=== PATIENT | male | born 1980 | race Caucasian/White ===

== ENCOUNTER 2019-11-09 13:40 | Outpatient (CLI) | payer OTHER, SELFPAY ==
--- NOTE | 2019-11-09 14:15 | US_ITS ---
WS: [id number] ABDOMINAL ULTRASOUND REASON FOR EXAM: nausea and vomiting TECHNIQUE: Grayscale and Doppler ultrasound examination of the abdomen. FINDINGS: Pancreas: Not well seen. Abdominal aorta and IVC: Within normal limits. Liver: Liver measures 20.4 cm in length. Fatty infiltration. Hepatopedal circulation normal. Gallbladder: Gallbladder wall thickness measures 2.4 mm. Calcified density is seen in the wall of the gallbladder most likely a calcified polyp. There is fluid accumulation adjacent to the gallbladder m easures 3.57 x 1.96 cm. Most likely a hepatic cyst. Left kidney: Left kidney measures 11.6 cm x 5.2 cm x 5.3 cm. No hydronephrosis or stones. Right kidney: Right kidney measures 11.3 cm x cm no hydronephrosis or stones. Spleen: Spleen measures 10.5 cm x 4.4 cm x 3.9 cm. US/US abdomen complete* [id number] IMPRESSION: Calcified density in the wall of the gallbladder most likely a calcified polyp. A cyst is noted in the liver hepatomegaly. The gallbladder. Fatty infiltration of the liver. Hepatomegaly.
== END 2019-11-09 13:41 | disposition home or self-care (01) ==
LOC: RAD 13:44
PROVIDERS: PCP Nurse Practitioner Family; Visit Provider Nurse Practitioner Family
DX: R11.2 Nausea with vomiting, unspecified (principal); K76.89 Other specified diseases of liver; K76.0 Fatty (change of) liver, not elsewhere classified; R16.0 Hepatomegaly, not elsewhere classified
CPT/HCPCS: 76700

== ENCOUNTER → 2019-11-10 19:23 | Outpatient (BNVA) | payer OTHER, SELFPAY | PROVIDERS: Visit Provider Nurse Practitioner Family | DX: E11.9 Type 2 diabetes mellitus without complications (principal); K21.9 Gastro-esophageal reflux disease without esophagitis; R10.9 Unspecified abdominal pain; K92.0 Hematemesis | CPT/HCPCS: 36416; 82962 ==

== ENCOUNTER → 2019-11-13 11:56 | Outpatient (BNVA) | payer OTHER, SELFPAY | PROVIDERS: PCP Nurse Practitioner Family; Visit Provider Nurse Practitioner Family | DX: R10.9 Unspecified abdominal pain (principal) | CPT/HCPCS: 82150; 83690 ==

== ENCOUNTER → 2020-01-07 14:45 | Outpatient (BNVA) | payer OTHER, SELFPAY | PROVIDERS: PCP Nurse Practitioner Family; Visit Provider Nurse Practitioner Family | DX: E11.9 Type 2 diabetes mellitus without complications (principal); E78.2 Mixed hyperlipidemia; E55.9 Vitamin D deficiency, unspecified; K76.0 Fatty (change of) liver, not elsewhere classified; R53.83 Other fatigue | CPT/HCPCS: 80053; 80061; 81001; 82306; 83036; 84443; 85025 ==

== ENCOUNTER → 2020-03-28 16:49 | Outpatient (BNVA) | payer OTHER, SELFPAY | PROVIDERS: PCP Nurse Practitioner Family; Visit Provider Nurse Practitioner Family | DX: Z11.59 Encounter for screening for other viral diseases (principal); R05 Cough | CPT/HCPCS: 87635 ==

== ENCOUNTER → 2020-10-03 08:36 | Outpatient (BNVA) | payer OTHER, SELFPAY | PROVIDERS: PCP Nurse Practitioner Family; Visit Provider Nurse Practitioner Family | DX: E55.9 Vitamin D deficiency, unspecified (principal); E11.9 Type 2 diabetes mellitus without complications; R53.83 Other fatigue; E78.2 Mixed hyperlipidemia; R10.11 Right upper quadrant pain; K21.9 Gastro-esophageal reflux disease without esophagitis | CPT/HCPCS: 80053; 80061; 81003; 82150; 82306; 83036; 83690; 84439; 84443; 84481; 85025 ==

== ENCOUNTER → 2021-02-07 11:14 | Outpatient (BNVA) | payer OTHER, SELFPAY | PROVIDERS: PCP Nurse Practitioner Family; Visit Provider Nurse Practitioner Family | DX: E11.9 Type 2 diabetes mellitus without complications (principal); E78.2 Mixed hyperlipidemia | CPT/HCPCS: 80053; 80061; 83036; 85025 ==

== ENCOUNTER → 2021-07-07 11:25 | Outpatient (BNVA) | payer OTHER, SELFPAY | PROVIDERS: PCP Nurse Practitioner Family; Visit Provider Nurse Practitioner Family | DX: E11.9 Type 2 diabetes mellitus without complications (principal) | CPT/HCPCS: 36415; 80053; 83036; 85025 ==

== ENCOUNTER 2022-04-18 16:20 | Emergency (ER) | payer OTHER, SELFPAY ==
--- NOTE | 2022-04-18 16:22 | ECG_ITS ---
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 Measurements Intervals [place] Rate: 105 P: 45 FL: 131 QRS: 11 QRSD: 95 T: 62 QT: 334 QTc: 442 Interpretive Statements SINUS TACHYCARDIA WITH FREQUENT SUPRAVENTRICULAR PREMATURE COMPLEXES POSSIBLE LEFT ATRIAL ENLARGEMENT [-0.1mV P-WAVE IN V1/V2] NONSPECIFIC T-WAVE ABNORMALITY ABNORMAL RHYTHM ECG No previous ECG available for comparison Electronically Signed On 04-18-2022 16:32:08 CDT by Bin Hayes M.D. [id number]
--- NOTE | 2022-04-18 16:31 | XRR_ITS ---
PROCEDURE INFORMATION: Exam: XR Chest Exam date and time: 04/18/2022 4:42 PM Age: 42 years old Clinical indication: Pain; Angina pectoris; Additional info: Chest pain TECHNIQUE: Imaging protocol: Radiologic exam of the chest. Views: 1 view. COMPARISON: No relevant prior studies available. FINDINGS: Lungs: 1.1 cm nodular density in the upper left lung. The lungs are otherwise clear. Pleural spaces: Unremarkable. No pleural effusion. No pneumothorax. Heart/Mediastinum: Unremarkable. No cardiomegaly. Bones/joints: Unremarkable. XR/XR chest 1V portable [id number] IMPRESSION: 1.1 cm left pulmonary nodule. Follow-up with CT imaging recommended.
[2022-04-18 16:34] VITALS: BP 134/77; PULSE 103; RESP 18; TEMP 36.6; O2SAT 99; BMI 38.3
--- NOTE | 2022-04-18 16:35 | W.ED.CHESTPA ---
Documented by User: Macario Jimenez DO 04/24/22 08:02 HPI - Chest Pain General: Chief Complaint: Chest Pain Stated Complaint: CHEST PAIN Time Seen by Provider: 04/18/22 16:24 Source: patient Mode of arrival: EMS Limitations: no limitations History of Present Illness: 42-year-old male presents emergency room via EMS he was at work began getting lightheaded and dizzy had some chest pain rating to his left arm he went back into a break area out of the heat and his symptoms have been persisting he began to ease up COVID EMS for called he was given nitro and aspirin on arrival here he is essentially symptom-free. He states he has had episodes like this before after which she had a cardiac work-up which was negative. He has not had any angiography. MD complaint: chest pain Onset (ago): minute(s) Timing of current episode: episodic Prior episodes: Yes Onset: during exertion Pain location: left chest Pain radiation: left arm Severity: moderate Quality: tightness, aching and heaviness Relieving factors: nitroglycerin and rest Exacerbating factors: nothing Context: other (Excessive heat exposure) Associated symptoms: Reports diaphoresis, dyspnea and nausea; Deny abdominal pain, fever(s), leg edema, palpitations, sense of impending doom, syncope or vomiting Treatment prior to arrival: aspirin, nitroglycerin and other (IV fentanyl) Review of Systems Const: Reports: diaphoresis; Denies: fever(s), chills, fatigue or malaise ENMT: Denies: throat pain, ear or mastoid pain, nasal discharge or nasal congestion Card: Denies: chest pain, palpitations or syncope Resp: Reports: dyspnea; Denies: productive cough, non-productive cough or wheezing GI: Reports: nausea; Denies: abdominal pain, vomiting or diarrhea : Denies: flank pain, difficulty urinating, dysuria, urinary frequency or urinary urgency Skin/Breast: Denies: rash or pruritus PFSH ED PFSH: Medical History Anxiety and depression Bilateral impacted cerumen Bilateral impacted cerumen DM type 2 (diabetes mellitus, type 2) Essential hypertension Fatigue Fatty liver GERD (gastroesophageal reflux disease) Mixed hyperlipidemia RUQ abdominal pain Vitamin D deficiency Surgical History History of appendectomy Family History Mother Anesthesia complication Bleeding disorder Clotting disorder CAD (coronary artery disease) Cancer Chronic kidney disease (CKD) Dementia Diabetes Lung disease Stroke Family/Other Bleeding disorder Clotting disorder CAD (coronary artery disease) Cancer Grandmother Cancer Grandfather Cancer Grandmother Cancer Grandfather Cancer Father Diabetes Stroke Denies family history of Suicide Social History Smoking and tobacco status: never smoked Second hand smoke exposure: No Smoking risk assessment/counseling performed?: No Alcohol intake: never Desire information about alcohol rehabilitation?: No Counseling given: No Desire information about substance/drug rehabilitation?: No Counseling given: No Physical Exam Const: COMMON NORMALS: no acute distress GENERAL APPEARANCE: cooperative and comfortable ORIENTATION/CONSCIOUSNESS: Yes awake, Yes oriented to person, Yes oriented to place and Yes oriented to time HENMT: COMMON NORMALS: normocephalic, atraumatic and hearing grossly normal bilaterally HEAD & SCALP: normocephalic and atraumatic Resp: COMMON NORMALS: normal respiratory effort, No retractions, No use of accessory muscles and clear to auscultation bilaterally AUSCULTATION: clear to auscultation bilaterally Cardio: COMMON NORMALS: regular rate, regular rhythm and No murmurs present (Cardio) RATE: regular rate RHYTHM: regular rhythm GI: COMMON NORMALS: Soft to palpation and No hepatosplenomegaly present AUSCULTATION: Yes normoactive bowel sounds PALPATION: Yes Soft to palpation, No Tenderness to palpation present (GI), No Guarding due to palpation present (GI) and Yes No hepatosplenomegaly present Extremity: COMMON NORMALS: normal to inspection, capillary refill normal, no clubbing, cyanosis or edema, no calf tenderness and no pedal edema Neuro: SENSORIUM/ORIENTATION: Yes oriented to person, Yes oriented to place and Yes oriented to time Skin: COMMON NORMALS: no rashes or lesions noted GENERAL SKIN EXAM: no rashes or lesions noted Course Vital Signs: Vital signs: Vital Signs Temperature 98 F 04/18/22 16:34 Pulse Rate 94 04/18/22 20:14 Respiratory Rate 19 H 04/18/22 20:14 Blood Pressure 124/94 04/18/22 20:14 Pulse Oximetry 100 04/18/22 20:14 Oxygen Delivery Me thod 04/18/22 18:43 MDM - Chest Pain Medical Decision Making Care signed out to Dr. Valencia at change of shift. See final notes for diagnosis and disposition. Patient presents here with chest pain is atypical in nature likely due to heat exposure he is well-appearing here he has no signs acute coronary syndrome 2-hour troponin here is negative did have a pulmonary nodule noted on x-ray informed him of this and we will get him follow-up with pulmonology he is return if worsening he understands agrees to plan. Medical Records I reviewed the patient's medical records. Lab Data I reviewed the patient's lab results. : 04/18/22 16:47 04/18/22 16:47 Radiology Impressions Chest X-Ray 04/18/22 16:31 IMPRESSION: 1.1 cm left pulmonary nodule. Follow-up with CT imaging recommended. Laboratory Results WBC 10.8 10^3/uL (4.0-10.0) H 04/18/22 16:47 RBC 4.60 10^6/uL (4.1-5.3) 04/18/22 16:47 Hgb 13.9 g/dL (11.7-16.6) 04/18/22 16:47 Hct 40.2 % (42.0-52.0) L 04/18/22 16:47 MCV 87.4 fl (80-94) 04/18/22 16:47 MCH 30.2 pg (28.0-34.0) 04/18/22 16:47 MCHC 34.6 g/dL (30.0-36.0) 04/18/22 16:47 RDW 12.6 % (12.1-15.1) 04/18/22 16:47 Plt Count 306 10^3/cmm (130-400) 04/18/22 16:47 MPV 11.6 fL (7.4-10.4) H 04/18/22 16:47 Neut % (Auto) 69.8 % 04/18/22 16:47 Lymph % (Auto) 20.2 % 04/18/22 16:47 Castro % (Auto) 7.7 % 04/18/22 16:47 Eos % (Auto) 1.1 % 04/18/22 16:47 Baso % (Auto) 0.6 % 04/18/22 16:47 Neut # (Auto) 7.51 10^3/uL (1.8-7.7) 04/18/22 16:47 Lymph # (Auto) 2.2 10^3/uL (0.8-4.8) 04/18/22 16:47 Castro # (Auto) 0.8 10^3/uL (0.2-0.9) 04/18/22 16:47 Eos # (Auto) 0.1 10^3/uL (0.0-0.8) 04/18/22 16:47 Baso # (Auto) 0.1 10^3/uL (0.0-0.1) 04/18/22 16:47 Nucleated RBC % (auto) 0 % 04/18/22 16:47 Nucleated RBCs # 0.0 /100WBC 04/18/22 16:47 Sodium 133 mmol/L (136-145) L 04/18/22 16:47 Potassium 3.6 mmol/L (3.5-5.1) 04/18/22 16:47 Chloride 98 mmol/L (98-107) 04/18/22 16:47 Carbon Dioxide 20 mmol/L (22-29) L 04/18/22 16:47 Anion Gap 18.6 (5-19) 04/18/22 16:47 BUN 14 mg/dL (6-20) 04/18/22 16:47 Creatinine 0.8 mg/dL (0.7-1.2) 04/18/22 16:47 GFR Calculation 106.0 mL/min (90-130) 04/18/22 16:47 Glucose 210 mg/dL (65-115) H 04/18/22 16:47 Calculated Osmolality 283 mOsm/kg (285-295) L 04/18/22 16:47 Calcium 9.1 mg/dL (8.5-10.5) 04/18/22 16:47 Total Bilirubin 0.5 mg/dL (0.15-1.2) 04/18/22 16:47 AST 12 U/L (0-40) 04/18/22 16:47 ALT 16 U/L (0-41) 04/18/22 16:47 Alkaline Phosphatase 78 IU/L (40-130) 04/18/22 16:47 Troponin T Baseline 7 ng/L (0-15) 04/18/22 16:47 Troponin T 120 Minute 9.55 ng/L (0-15) 04/18/22 18:57 Delta Troponin T 2.55 ABS# (0-10) 04/18/22 18:57 Total Protein 7.5 g/dL (6.6-8.7) 04/18/22 16:47 Albumin 4.3 g/dL (3.5-5.2) 04/18/22 16:47 Globulin 3.2 g/dL (1.3-4.6) 04/18/22 16:47 Discharge Plan Discharge Patient Disposition: Home Clinical Impression: Chest pain, Pulmonary nodule Condition: Stable Prescriptions: No Action ibuprofen 200 mg capsule 200 mg PO Q6H PRN (Reason: Pain) lisinopril 20 mg tablet 20 mg PO DAILY 90 Days Qty: 90 3RF azithromycin 250 mg tablet See Rx Instructions PO .COMPLEX 5 Days Qty: 6 0RF Rx Instructions: For 250 mg dose pack: take 500 mg today (day 1), then 250 mg for 4 days (days 2-5) PO Januvia 100 mg tablet 100 mg PO DAILY 90 Days Qty: 90 2RF Nexium 20 mg Capsule,Delayed Release(Dr/Ec) 20 mg PO DAILY Discharge Orders: Discharge ED (Routine); Ordered 04/18/22 Ordered By: Leonor Valencia Referrals: FILIBERTO Howe, CLINICAL REVIEW NURSE [Primary Care Provider] - Discharge Diet: Advance as tolerated Discharge Activity: Resume usual activity Patient Instructions: Chest Pain (ED) Coding Level of Care Code ED Development Representative for Chg Fwd Exam Detailed Documented by User: Leonor Valencia MD 04/18/22 20:00 HPI - Chest Pain General: Chief Complaint: Chest Pain Stated Complaint: CHEST PAIN Time Seen by Provider: 04/18/22 16:24 PFSH ED PFSH: Medical History Anxiety and depression Bilateral impacted cerumen Bilateral impacted cerumen DM type 2 (diabetes mellitus, type 2) Essential hypertension Fatigue Fatty liver GERD (gastroesophageal reflux disease) Mixed hyperlipidemia RUQ abdominal pain Vitamin D deficiency Surgical History History of appendectomy Family History Mother Anesthesia complication Bleeding disorder Clotting disorder CAD (coronary artery disease) Cancer Chronic kidney disease (CKD) Dementia Diabetes Lung disease Stroke Family/Other Bleeding disorder Clotting disorder CAD (coronary artery disease) Cancer Grandmother Cancer Grandfather Cancer Grandmother Cancer Grandfather Cancer Father Diabetes Stroke Denies family history of Suicide Social History Smoking and tobacco status: never smoked Second hand smoke exposure: No Smoking risk assessment/counseling performed?: No Alcohol intake: never Desire information about alcohol rehabilitation?: No Counseling given: No Desire information about substance/drug rehabilitation?: No Counseling given: No Course Vital Signs: Vital signs: Vital Signs Temperature 98 F 04/18/22 16:34 Pulse Rate 94 04/18/22 20:14 Respiratory Rate 19 H 04/18/22 20:14 Blood Pressure 124/94 04/18/22 20:14 Pulse Oximetry 100 04/18/22 20:14 Oxygen Delivery Me thod 04/18/22 18:43 MDM - Chest Pain Medical Decision Making Patient presents here with chest pain is atypical in nature likely due to heat exposure he is well-appearing here he has no signs acute coronary syndrome 2-hour troponin here is negative did have a pulmonary nodule noted on x-ray informed him of this and we will get him follow-up with pulmonology he is return if worsening he understands agrees to plan. Lab Data : 04/18/22 16:47 04/18/22 16:47 Radiology Impressions Chest X-Ray 04/18/22 16:31
[2022-04-18] MEDS: sodium chloride 0.9% 1,000 ML 999 ML IV (16:48)
[2022-04-18 17:03] LABS: Basophils # 0.1 10^3/uL (0.0-0.1); Basophils % 0.6 %; Eosinophils # 0.1 10^3/uL (0.0-0.8); Eosinophils % 1.1 %; Hematocrit 40.2 % (42.0-52.0); Hemoglobin 13.9 g/dL (11.7-16.6); Lymphocytes # 2.2 10^3/uL (0.8-4.8); Lymphocytes % 20.2 %; Mean Corpuscular HGB Conc 34.6 g/dL (30.0-36.0); Mean Corpuscular Hemoglobin 30.2 pg (28.0-34.0); Mean Corpuscular Volume 87.4 fl (80-94); Mean Platelet Volume 11.6 fL (7.4-10.4); Monocytes # 0.8 10^3/uL (0.2-0.9); Monocytes % 7.7 %; Neutrophils # 7.51 10^3/uL (1.8-7.7); Neutrophils % 69.8 %; Nucleated Red Blood Cells % 0 %; Platelet Count 306 10^3/cmm (130-400); Red Cell Distribution Width 12.6 % (12.1-15.1); White Blood Count 10.8 10^3/uL (4.0-10.0)
--- NOTE | 2022-04-18 17:05 | ECG_ITS ---
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 Measurements Intervals [place] Rate: 98 P: [place]: QRS: 10 QRSD: 91 T: 62 QT: 357 QTc: 457 Interpretive Statements Normal sinus rhythm with frequent supraventricular ectopics LOW QRS VOLTAGE IN PRECORDIAL LEADS [QRS DEFLECTION < 1.0 mV IN CHEST LEADS] NONSPECIFIC T-WAVE ABNORMALITY ABNORMAL RHYTHM ECG Compared to ECG 04/18/2022 16:30:46 Low QRS voltage now present Sinus tachycardia no longer present T-wave abnormality still present Electronically Signed On 04-19-2022 21:22:04 CDT by Trevin Crawford M.D. [id number]
[2022-04-18 17:07] VITALS: BP 118/74; PULSE 97; RESP 16; O2SAT 99
[2022-04-18 17:27] LABS: Troponin(5th) Baseline 7 ng/L (0-15)
[2022-04-18 18:15] LABS: Alanine Aminotransferase 16 U/L (0-41); Albumin Level 4.3 g/dL (3.5-5.2); Alkaline Phosphatase 78 IU/L (40-130); Anion Gap 18.6 (5-19); Aspartate Amino Transferase 12 U/L (0-40); Blood Urea Nitrogen 14 mg/dL (6-20); Calcium 9.1 mg/dL (8.5-10.5); Carbon Dioxide 20 mmol/L (22-29); Chloride 98 mmol/L (98-107); Globulin 3.2 g/dL (1.3-4.6); Glucose 210 mg/dL (65-115); Osmolality Calculated 283 mOsm/kg (285-295); Potassium 3.6 mmol/L (3.5-5.1); Sodium 133 mmol/L (136-145); Total Bilirubin 0.5 mg/dL (0.15-1.2); Total Protein 7.5 g/dL (6.6-8.7)
--- NOTE | 2022-04-18 18:31 | ECG_ITS ---
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 Measurements Intervals [place] Rate: 87 P: 32 MN: 135 QRS: 16 QRSD: 91 T: 79 QT: 371 QTc: 447 Interpretive Statements SINUS RHYTHM WITH FREQUENT SUPRAVENTRICULAR PREMATURE COMPLEXES NONSPECIFIC T-WAVE ABNORMALITY ABNORMAL RHYTHM ECG Compared to ECG 04/18/2022 17:05:52 Atrial fibrillation no longer present T-wave abnormality still present Electronically Signed On 04-19-2022 21:33:23 CDT by Trevin Crawford M.D. [id number]
[2022-04-18 18:43] VITALS: BP 149/98; PULSE 85; RESP 18; O2SAT 99
[2022-04-18 19:34] LABS: Troponin 5 2HR 9.55 ng/L (0-15)
[2022-04-18 20:00] VITALS: BP 124/94; PULSE 94; RESP 19; O2SAT 100
[2022-04-18 20:14] VITALS: BP 124/94; PULSE 94; RESP 19; O2SAT 100
[2022-04-18 20:25] LABS: Troponin 5 2HR Delta 2.55 ABS# (0-10)
--- NOTE | 2022-04-19 08:21 | DCPLANNER ---
Addendum entered by Lauren Flores 05/15/22 13:25: Patient had a follow up appointment scheduled for 05.07.[address] Arreola at [facility] - patient did attend appointment. Addendum entered by Lauren Flores 04/24/22 11:18: Patient has a follow up appointment scheduled for Saturday, May 07, 2022 at 1:[address] Arreola at [facility]. Clinic will call patient with appointment information. Original Note: manager [employer] had message to schedule a follow up appointment for patient with pulmonology. manager [employer] sent patients information to the front office staff at [facility]. Patients information will be printed and reviewed. Clinic will call patient with appointment information.
== END 2022-04-18 20:16 | disposition home or self-care (01) ==
PROVIDERS: Family Medicine; Emergency Provider Emergency Medicine; PCP Nurse Practitioner Family
DX: R07.9 Chest pain, unspecified (principal); R91.1 Solitary pulmonary nodule; E11.9 Type 2 diabetes mellitus without complications; I10 Essential (primary) hypertension; E78.2 Mixed hyperlipidemia
CPT/HCPCS: 71045; 80053; 84484; 85025; 93005; 99285; J7030

== ENCOUNTER → 2022-05-07 13:14 | Outpatient (BNVA) | payer OTHER, SELFPAY | PROVIDERS: PCP Nurse Practitioner Family; Visit Provider Internal Medicine Critical Care Medicine | DX: Z09 Encounter for follow-up examination after completed treatment for conditions other than malignant neoplasm (principal); R91.1 Solitary pulmonary nodule | CPT/HCPCS: 71046 ==

== ENCOUNTER 2022-06-22 10:56 | Outpatient (CLI) | payer OTHER, SELFPAY ==
--- NOTE | 2022-06-22 12:45 | CTR_ITS ---
PROCEDURE INFORMATION: Exam: CT Chest Without Contrast; Diagnostic Exam date and time: 06/22/2022 12:31 PM Age: 42 years old Clinical indication: Condition or disease; Lung condition and disease; Other: Nodule f/u; Additional info: Pulmonary nodule f/u TECHNIQUE: Imaging protocol: Diagnostic computed tomography of the chest without contrast. Radiation optimization: All CT scans at this facility use at least one of these dose optimization techniques: automated exposure control; mA and/or kV adjustment per patient size (includes targeted exams where dose is matched to clinical indication); or iterative reconstruction. COMPARISON: CR XR chest 2V* [id number] 05/07/2022 2:03 PM RADIATION DOSE METRICS: Total DLP (mGy-cm): 739.44 FINDINGS: Lungs: Stable 1.1 cm calcified granuloma left upper lobe. No followup needed. Pleural spaces: Unremarkable. No pneumothorax. No pleural effusion. Heart: No obvious coronary artery calcifications. No cardiomegaly. No pericardial effusion. Lymph nodes: Calcified left hilar nodes and/or mediastinal nodes and/or lung granulomas consistent with old granulomatous disease. Vasculature: Unremarkable. No aortic aneurysm. Spleen: Calcified splenic granulomas. Bones/joints: Moderate thoracic spondylosis. Dextroscoliosis. Soft tissues: Unremarkable. CT/CT chest wo con [id number] IMPRESSION: Stable 1.1 cm calcified granuloma left upper lobe. No followup needed.
== END 2022-06-22 10:57 | disposition home or self-care (01) ==
PROVIDERS: Visit Provider Internal Medicine Critical Care Medicine
DX: R91.1 Solitary pulmonary nodule (principal); J84.10 Pulmonary fibrosis, unspecified
CPT/HCPCS: 71250

== ENCOUNTER → 2022-12-05 11:34 | Outpatient (BNVA) | payer OTHER, SELFPAY | PROVIDERS: PCP Nurse Practitioner; Visit Provider Nurse Practitioner | DX: E11.9 Type 2 diabetes mellitus without complications (principal); I10 Essential (primary) hypertension; E78.2 Mixed hyperlipidemia | CPT/HCPCS: 80053; 80061; 83036; 85025 ==

== ENCOUNTER → 2023-07-25 09:53 | Outpatient (BNVA) | payer OTHER, SELFPAY | PROVIDERS: PCP Nurse Practitioner; Visit Provider Nurse Practitioner Family | DX: E11.9 Type 2 diabetes mellitus without complications (principal) | CPT/HCPCS: 80048; 83036 ==

== ENCOUNTER 2023-08-30 09:23 | Outpatient (CLI) | payer OTHER, SELFPAY ==
--- NOTE | 2023-08-30 10:00 | USCV_ITS ---
BarJass christiansonin Age: 43 Gender: M : 1980 Exam Date: 08/30/2023 09:56 Ordering Phys: FILIBERTO Howe APRN Technologist: Gustavo Bhatt [place] [facility] [place]: pain and swelling PROCEDURES: Venous duplex imaging was performed in bilateral lower extremities. The following venous structures were evaluated: common femoral vein, profunda vein, proximal portion of the greater saphenous vein, superficial femoral vein, and the popliteal vein. In addition, the posterior tibial and peroneal trunk were evaluated. Serial compression, augmentation maneuvers, and spectral Doppler flow evaluation were performed. FINDINGS: Normal 2-D Doppler and augmentation and compressibility throughout the lower extremity venous structures. Additional imaging through the proximal calf veins also reveals no thrombus. Limited evaluation of the greater saphenous vein is patent with no thrombus. CONCLUSIONS No DVT bilateral lower extremities. Dr. Caroline Wray DO (Electronically Signed) Final Date: 30 August 2023 11:19 S
== END 2023-08-30 09:24 | disposition home or self-care (01) ==
PROVIDERS: PCP Nurse Practitioner; Visit Provider Nurse Practitioner Family
DX: I83.93 Asymptomatic varicose veins of bilateral lower extremities (principal)
CPT/HCPCS: 93970

== ENCOUNTER → 2024-05-22 10:02 | Outpatient (BNVA) | payer OTHER, SELFPAY | PROVIDERS: PCP Nurse Practitioner Family; Visit Provider Nurse Practitioner Family | DX: E11.9 Type 2 diabetes mellitus without complications (principal) | CPT/HCPCS: 80053; 85025 ==

== ENCOUNTER → 2025-07-23 09:03 | Outpatient (BNVA) | payer OTHER, SELFPAY | PROVIDERS: PCP Nurse Practitioner Family; Visit Provider Nurse Practitioner Family | DX: E78.1 Pure hyperglyceridemia (principal); I10 Essential (primary) hypertension; E55.9 Vitamin D deficiency, unspecified; E78.2 Mixed hyperlipidemia; E11.9 Type 2 diabetes mellitus without complications | CPT/HCPCS: 80053; 80061; 81003; 82306; 83036; 84443; 85025 ==